=== PATIENT | male | born 2000 | race Two or more races ===

== ENCOUNTER 2021-08-19 14:51 | Emergency (ER) | payer OTHER ==
[2021-08-19 15:00] VITALS: BP 134/69
--- NOTE | 2021-08-19 15:07 | ED Physician Documentation ---
History of Present Illness - Stated complaint Stated Complaint: RASH - Chief complaint Chief Complaint: General - History obtained from History obtained from: Patient - Additonal information Additional information: 20-year-old gentleman noticed an asymptomatic rash on the right scalp today. Worried he has ringworm which he has had before. Review of Systems Constitutional: denies: Fever, Chills Throat: denies: Dental pain / toothache, Sore throat Cardiac: denies: Chest pain / pressure, Palpitations Respiratory: denies: Dyspnea, Cough PD PAST MEDICAL HISTORY - Present Medications Home Medications: Ambulatory Orders Medication Instructions Recorded Confirmed Clotrimazole 1% Cream [Lotrimin 1% 1 appful TOP BID 28 Days ml 08/19/21 Cream] - Allergies Allergies/Adverse Reactions: Allergies Allergy/AdvReac Type Severity Reaction Status Date / Time cephalexin [From Keflex] Allergy Edema Verified 08/19/21 14:58 Penicillins Allergy Rash Verified 08/19/21 14:58 PD ED PE NORMAL - Vitals Vital signs reviewed: Yes - General General: Alert and oriented X 3, No acute distress - Derm Derm: Other (There is a small area of ringworm on the right rastafarian) - Neuro Neuro: Alert and oriented X 3, Normal speech Results - Vitals Vitals: Vital Signs - 24 hr 08/19/21 14:58 Temperature 36.5 C Heart Rate 75 Respiratory 16 Rate Blood Pressure 134/69 H O2 Saturation 100 Oxygen O2 Source Room air Departure - Departure Disposition: 01 Home, Self Care Clinical Impression: Tinea corporis Condition: Good Record reviewed to determine appropriate education?: Yes Instructions: ED Dermatitis Ringworm Scalp Prescriptions: Clotrimazole 1% Cream [Lotrimin 1% Cream] 1 appful TOP BID 28 Days ml Comments: Recheck with your doctor in a week or 2, return for new or worsening symptoms.
== END 2021-08-19 15:14 | disposition home or self-care (01) ==
LOC: ED 14:51
DX: B35.4 Tinea corporis (principal)
CPT/HCPCS: 99282

== ENCOUNTER 2022-03-01 16:24 | Outpatient (CLI) | payer OTHER | END 2022-03-01 16:25 | disposition left against medical advice (07) | LOC: EMS 16:24 | DX: S30.811A Abrasion of abdominal wall, initial encounter (principal); S60.511A Abrasion of right hand, initial encounter; V43.53XA Car driver injured in collision with pick-up truck in traffic accident, initial encounter; Y92.413 State road as the place of occurrence of the external cause ==

== ENCOUNTER 2022-03-01 18:50 | Emergency (ER) | payer OTHER ==
[2022-03-01] MEDS ORDERED: IBUPROFEN 800 MG TABLET PO STA (20:03)
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
[2022-03-01 22:05] VITALS: BP 116/60
== END 2022-03-01 22:05 | disposition home or self-care (01) ==
LOC: ED 18:50
DX: S39.012A Strain of muscle, fascia and tendon of lower back, initial encounter (principal); V89.2XXA Person injured in unspecified motor-vehicle accident, traffic, initial encounter; Y93.89 Activity, other specified
CPT/HCPCS: 71101; 99282; 99283; A9270